=== PATIENT | female | born 1985 | race Caucasian/White ===

== ENCOUNTER 2017-11-01 18:59 | Emergency (ER) | payer MEDICAID ==
[2017-11-01 21:09] LABS: HCG SERUM NEGATIVE (NEGATIVE)
[2017-11-01 22:42] LABS: BASOPHILS 0.1 % (0-2); EOSINOPHILS 0.7 % (0-7); HEMATOCRIT 38.8 % (36.0-48.0); HEMOGLOBIN 13.2 g/dL (12-16); IMMATURE GRANULOCYTES 0.2 % (0-5); LYMPHOCYTES 25.6 % (15-50); MCH 32.2 pg (26.0-34.0); MCV 94.6 fL (80.0-100.0); MEAN PLATELET VOLUME 10.8 fL (7.4-10.4); MONOCYTES 4.3 % (2-11); NEUTROPHILS 69.1 % (40-80); PLATELET COUNT 299 10x3/uL (130-400); RDW 12.6 % (11.5-14.5)
[2017-11-01 22:50] LABS: ALKALINE PHOSPHATASE 58 U/L (46-116); ALT (SGPT) 33 U/L (10-68); BILIRUBIN - TOTAL 0.11 mg/dL (0.2-1.3); CALC OSMOLALITY 276 mosm/kg (275-300); CALCIUM 8.4 mg/dL (8.5-10.1); CHLORIDE - SERUM 102 mmol/L (98-107); CREATININE - SERUM 0.8 mg/dL (0.6-1.3); GLUCOSE 122 mg/dL (74-106); POTASSIUM - SERUM 3.9 mmol/L (3.5-5.1); PROTEIN - SERUM 7.7 g/dL (6.4-8.2); SODIUM 139 mmol/L (136-145); UREA NITROGEN 8 mg/dL (7-18); eGFR NON AFRICAN AMERICAN 87 mL/min (90-120)
== END 2017-11-02 02:09 | disposition home or self-care (01) ==
LOC: D.ER 18:59
PROVIDERS: Emergency Medicine
DX: T76.21XA Adult sexual abuse, suspected, initial encounter (principal)